=== PATIENT | female | born 1970 | race Caucasian/White ===

== ENCOUNTER → 2016-06-16 | Outpatient (CLI) | payer OTHER ==
[~2016-06-16] MED LIST: CELE20TA PO; DOXY25S PO; OXYC-360 PO; Z.0.NO CURRENT MEDS
[2016-06-16 11:23] LABS: HEMATOCRIT 39.7 % (35.0-46.0); MEAN CELL VOLUME 85.1 FL (80.0-100.0); MEAN CORPUSCULAR HEMOGLOBIN 28.5 PG (27.0-34.0); MEAN CORPUSCULAR HGB CONC 33.5 % (32.0-36.0); PLATELET COUNT 399 TH/MM3 (150-450); RED BLOOD COUNT 4.67 MIL/MM3 (4.00-5.30); RED CELL DISTRIBUTION WIDTH 12.7 % (11.6-17.2); REVIEW FLAG FINAL; WHITE BLOOD COUNT 5.9 TH/MM3 (4.0-11.0)
== END ==
LOC: CPRE 09:59
PROVIDERS: ATTEND Obstetrics & Gynecology
DX: R32 Unspecified urinary incontinence (principal)
CPT/HCPCS: 36415; 84703; 85027

== ENCOUNTER → 2016-06-21 | Day surgery (SDC) | payer OTHER ==
[~2016-06-21] VITALS: Ht 170.2 cm; Wt 71.8 kg
[~2016-06-21] MED LIST changes: +*morphine SULFATE 8 MG/ML PERIprocedure ONLY ONE; +ACETAMINOPHEN 1000 MG/100 ML VIAL IV ONE; +DO NOT ADM ANY ANTICOAGULANT DRUGS XX PRN; -DOXY25S PO; +FAMOTIDINE 20 MG/2 ML VIAL ONE; +INSULIN HUMAN REGULAR 1,000 UNITS/10 ML VIAL SQ PRN; +KETOROLAC TROMETHAMINE 30 MG/ML (IVP) VIAL IV PUSH ONE; +KETOROLAC TROMETHAMINE 30 MG/ML (IVP) VIAL ONE; +LACTATED RINGER'S 1000 ML IV SCH; +METOPROLOL TARTRATE 25 MG TAB PO PRN; +MIDAZOLAM HCL 2 MG/2 ML VIAL ONE; +MORPHINE SULFATE 4 MG/ML INJ IV PRN; +NEOSTIGMINE 3 MG/3 ML SYR IV ONE; +ONDANSETRON HCL 4 MG/2 ML VIAL IV PRN; +ONDANSETRON HCL 4 MG/2 ML VIAL IV PUSH ONE; -OXYC-360 PO; +PROMETHAZINE INJ 25 MG/ML VIAL ONE; +PROPOFOL 200 MG/20 ML AMP IV ONE; +SODIUM CHLOR 0.9% 1000 ML INJ 1,000 ML IV SCH; +SODIUM CHLORID 0.9% 500 ML IV SCH; -Z.0.NO CURRENT MEDS; +ceFAZolin 1,000 MG/NS 100 ML IV SCH; +fentaNYL CITRATE 250 MCG/5 ML AMP ONE; +oxyCODONE/ACETAMINOPHEN 5 MG/325 MG TAB PO PRN
[2016-06-21 08:18] VITALS: BP 114/71; PULSE 62; RESP 16; TEMP 98.2; O2SAT 100
[2016-06-21 15:14] VITALS: BP 137/79; PULSE 64; RESP 20; TEMP 97.8; O2SAT 100
--- NOTE | 2016-06-24 23:55 | MP ---
cc: ISAAC GOODMAN M.D. DATE OF SURGERY: 06/21/2016 PREOPERATIVE DIAGNOSIS Stress urinary incontinence. POSTOPERATIVE DIAGNOSIS Stress urinary incontinence. PROCEDURE Transverse obturator tape, urethral suspension and cystoscopy. SURGEON Isaac Goodman MD ANESTHESIA General. ESTIMATED BLOOD LOSS 50 cc. COMPLICATIONS None. FINDINGS The patient had an essentially normal vaginal exam with a perhaps very small cystocele of no clinical significance. On cystoscopy the urethra and bladder were unremarkable with no evidence of trauma. DESCRIPTION OF PROCEDURE The patient was brought to the operating room and following general anesthesia was placed in the dorsolithotomy position. Her vagina, abdomen and perineum were prepped and draped. The midline vaginal mucosal incision was made beneath the urethra and lateral dissection was performed in a sharp fashion. When the obturator foramen was palpated the dissection ceased. We then placed the [employer] System transverse obturator tape without difficulty into each obturator foramen. We then performed a cystoscopy with the findings as noted above. Bleeding was minimal at that point so the vaginal mucosa was then closed with a running locking #2-0 Vicryl stitch. Good hemostasis was seen so all instruments were removed from the vagina and the patient taken to the Recovery Room in good condition with all counts correct. She will be discharged home when stable and alert to be followed up in one week in our office. Her discharge medication is Percocet. She was given instructions on physical activity and instructed to resume a regular diet as tolerated. Isaac Goodman MD [facility] /3:45 PM /11:33 PM
== END | disposition home or self-care (01) ==
LOC: HSDC 07:34
PROVIDERS: ATTEND Obstetrics & Gynecology
DX: N39.3 Stress incontinence (female) (male) (principal)
CPT/HCPCS: 00860; 57288; 86850; 86900; 86901; C1771; J0131; J0690; J2250; J2270; J2405; J2550; J2710; J3010; J7120; J1885